=== PATIENT | female | born 1970 | race Caucasian/White ===

== ENCOUNTER 2017-01-20 11:53 | Emergency (ER) | payer OTHER ==
[~2017-01-20] VITALS: Ht 167.6 cm; Wt 59.9 kg
[~2017-01-20 11:53] MED LIST: ADVIL200 MG PO; BENTYL10 MG PO; CLARITIN10 MG PO; FLONASE16 G1 BOTH NARES; FLONASE16 GM NS; FLOVENT DISKUS1 DIS1 IH; GAS-X80 MG PO; IBUPROFEN400 MG PO; MIRALAX255 GM PO; MOTRIN800 MG PO; MUCINEX1200 MG PO; NAPROSYN500 MG PO; NOHOMEMEDS; PERCOCET 5-3251 EACH PO; PRILOSEC40 MG PO; TUMS500 MG PO; TYLENOL EXTRA500 MG PO; ZANTAC150 MG PO; ZITHROMAX Z-PA250 MG PO; ZOFRAN4 MG PO
[2017-01-20] MEDS ORDERED: MOTRIN800 MG PO (13:59)
[2017-01-20] MEDS ORDERED: NORCO 7.5/321 TABLET PO (14:02)
[2017-01-20 14:14] VITALS: BP 141/85
== END 2017-01-20 14:15 | disposition home or self-care (01) ==
LOC: EME 11:53
DX: S20.20XA Contusion of thorax, unspecified, initial encounter (principal); W22.09XA Striking against other stationary object, initial encounter; F17.200 Nicotine dependence, unspecified, uncomplicated
CPT/HCPCS: 71101; 99281; 99283

== ENCOUNTER 2017-02-09 21:52 | Emergency (ER) | payer OTHER ==
[~2017-02-09] VITALS: Ht 167.6 cm; Wt 66.0 kg
[~2017-02-09 21:52] MED LIST changes: +NORCO 7.5/321 TABLET PO
[2017-02-09] MEDS ORDERED: ZITHROMAX Z-PA250 MG PO (23:39)
[2017-02-09 23:53] VITALS: BP 113/75
== END 2017-02-09 23:54 | disposition home or self-care (01) ==
LOC: EME 21:52
DX: J02.0 Streptococcal pharyngitis (principal); F17.200 Nicotine dependence, unspecified, uncomplicated; Z88.1 Allergy status to other antibiotic agents; Z88.8 Allergy status to other drugs, medicaments and biological substances; Z88.5 Allergy status to narcotic agent; Z88.6 Allergy status to analgesic agent; Z88.0 Allergy status to penicillin; Z85.41 Personal history of malignant neoplasm of cervix uteri; Z90.710 Acquired absence of both cervix and uterus
CPT/HCPCS: 87651 90; 99281; 99284